=== PATIENT | male | born 1995 | race Caucasian/White ===

== ENCOUNTER 2017-01-05 14:57 | Emergency (ER) | payer OTHER, BC ==
[2017-01-05] MEDS: ZOFRAN IV ONE (15:37)
[2017-01-05] MEDS: MORPHINE IV ONE (15:37)
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
[2017-01-05 15:52] LABS: Basophils % (Auto) 1.2 % (0.0-1.8); Hemoglobin 15.8 gm/dl (11.8-15.2); Mean Corpuscular HGB Conc 34 % (32-34); Mean Corpuscular Hemoglobin 31 pg (28-32); Mean Corpuscular Volume 91 fl (84-94); Platelet Count 193 K/mm3 (140-440); Red Blood Count 5.17 M/mm3 (3.65-5.03); Red Cell Distribution Width 12.7 % (13.2-15.2); White Blood Count 5.9 K/mm3 (4.5-11.0)
[2017-01-05 16:02] LABS: INR 1.05 (0.87-1.13)
[2017-01-05 16:03] LABS: Partial Thromboplastin Time 26.5 Sec. (24.2-36.6)
[2017-01-05 16:12] LABS: Alanine Aminotransferase 11 units/L (7-56); Albumin 4.4 g/dL (3.9-5); Albumin/Globulin Ratio 1.8 %; Alkaline Phosphatase 79 units/L (35-129); Anion Gap 16 mmol/L; BUN/Creatinine Ratio 7.77; Bilirubin,Total 0.5 mg/dL (0.1-1.2); Blood Urea Nitrogen 7 mg/dL (9-20); Calcium 9.3 mg/dL (8.4-10.2); Carbon Dioxide 23 mmol/L (22-30); Chloride 101.4 mmol/L (98-107); Glucose 113 mg/dL (75-100); Potassium 3.8 mmol/L (3.6-5.0); Sodium 137 mmol/L (137-145); Total Protein 6.9 g/dL (6.3-8.2)
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
[2017-01-05] MEDS: SUBLIMAZE IV ONE (18:10)
[2017-01-05] MEDS: TORADOL IV ONE (18:12)
[2017-01-05 18:27] VITALS: BP 120/68
== END 2017-01-05 18:28 | disposition home or self-care (01) ==
LOC: ED 14:57
DX: S16.1XXA Strain of muscle, fascia and tendon at neck level, initial encounter (principal); S09.90XA Unspecified injury of head, initial encounter; S30.1XXA Contusion of abdominal wall, initial encounter; S80.01XA Contusion of right knee, initial encounter; S50.01XA Contusion of right elbow, initial encounter; F17.200 Nicotine dependence, unspecified, uncomplicated; V49.49XA Driver injured in collision with other motor vehicles in traffic accident, initial encounter; Y93.9 Activity, unspecified; Y92.9 Unspecified place or not applicable; Y99.9 Unspecified external cause status
CPT/HCPCS: 36415; 70450; 71020; 72100; 72125; 73070; 73562; 73590; 74177; 80053; 83690; 85025; 85610; 85730; 86850; 86900; 86901; 96374; 96375; 99285; J1885; J2270; J2405; J3010; Q9967

== ENCOUNTER 2017-09-07 23:40 | Emergency (ER) | payer BC ==
[2017-09-08 00:57] VITALS: BP 123/61
== END 2017-09-08 02:00 | disposition left against medical advice (07) ==
LOC: ED 23:40
DX: R06.02 Shortness of breath (principal); Z53.21 Procedure and treatment not carried out due to patient leaving prior to being seen by health care provider
CPT/HCPCS: 87400